=== PATIENT | female | born 1980 | race Caucasian/White ===

== ENCOUNTER 2016-09-10 11:36 | Emergency (ER) | payer MEDICAID, OTHER ==
[~2016-09-10] VITALS: Ht 162.6 cm; Wt 105.3 kg
[2016-09-10 11:38] VITALS: BP 116/65
[2016-09-10 13:37] LABS: BLOOD UREA NITROGEN 13 mg/dL (7-18)
[2016-09-10 13:42] LABS: ASPARTATE AMINO TRANSFERASE 13 U/L (15-37)
[2016-09-10 13:43] LABS: IS PT STATUS REG ER OR PRE ER? YES
== END 2016-09-10 15:03 | disposition home or self-care (01) ==
LOC: ED 14:40
DX: R00.2 Palpitations (principal); Z90.710 Acquired absence of both cervix and uterus
CPT/HCPCS: 36415; 71010; 80053; 84439; 84443; 84484; 85025; 85379; 93005; 99285